=== PATIENT | female | born 1940 | race Caucasian/White ===

== ENCOUNTER 2016-10-27 10:01 | Inpatient (IN) | payer MEDICARE ==
[~2016-10-27] VITALS: Ht 162.6 cm; Wt 52.6 kg
[2016-10-27] MEDS ORDERED: NIFE20CA PO (10:32)
[2016-10-27] MEDS ORDERED: LISI10TA4 PO (10:32)
[2016-10-27] MEDS ORDERED: ASPI1TAB PO (10:32)
[2016-10-27] MEDS ORDERED: ZETI10TA30 PO (10:32)
[2016-10-27] MEDS ORDERED: PLAV1TAB2 PO (10:32)
[2016-10-27] MEDS ORDERED: OMEP40CA2 PO (10:32)
[2016-10-27] MEDS ORDERED: METO1TAB33 PO (10:32)
[2016-10-27] MEDS ORDERED: NITR4TASL SL (10:32)
[2016-10-27] MEDS ORDERED: SPIR1CAP INH (10:32)
[2016-10-27] MEDS ORDERED: CALCTAB28 PO (10:32)
[2016-10-27] MEDS ORDERED: XANA0.5T PO (10:32)
[2016-10-27] MEDS ORDERED: VICO5TAB16 PO (10:32)
[2016-10-27] MEDS ORDERED: BENT10CA PO (10:32)
[2016-10-27] MEDS ORDERED: FOLI800C PO (10:32)
[2016-10-27] MEDS ORDERED: MORPHINE 2 MG/ML 1ML SYRINGE As Ordered ONE (10:37)
[2016-10-27] MEDS ORDERED: ONDANSETRON 4MG/2ML VIAL (J2405) As Ordered ONE (10:37)
[2016-10-27] MEDS ORDERED: ONDANSETRON 4MG/2ML VIAL (J2405) IV ONE (10:45)
[2016-10-27] MEDS ORDERED: NS 500 ML IV ONE (10:45)
[2016-10-27] MEDS: MORPHINE 2 MG/ML 1ML SYRINGE IV PRN ×5 (10:46→16:15)
[2016-10-27 11:15] LABS: BASO % 0.3 % (0.0-1.0); EOS # 0.1 K/mm3 (0.0-0.50); EOS % 1.1 % (0.0-3.0); LARGE UNSTAINED CELL # 0.1 K/mm3 (0.0-0.4); LARGE UNSTAINED CELL % 1.2 % (0.0-4.0); LYMPH % 9.3 % (24.0-44.0); MEAN CORPUSCULAR HEMOGLOBIN 26.5 pg (27.0-33.0); MEAN CORPUSCULAR VOLUME 85.5 fl (80.0-96.0); MONO # 0.6 K/mm3 (0.0-0.8); NEUTROPHILS # 9.2 K/mm3 (1.8-7.7); NEUTROPHILS % 83.2 % (36.0-66.0); PLATELET COUNT, AUTOMATED 166 k/mm3 (150-450); RED CELL DISTRIBUTION WIDTH 16.9 % (11.5-14.5); WHITE BLOOD COUNT 11.1 K/mm3 (4.0-10.0)
[2016-10-27 11:35] LABS: ALBUMIN 2.7 GM/DL (3.2-5.2); ALKALINE PHOSPHATASE 88 U/L (45-117); ALT/SGPT 17 U/L (12-78); ANION GAP 11 MEQ/L (8-16); AST/SGOT 20 U/L (15-37); BILIRUBIN,DIRECT 0.2 MG/DL (0.0-0.2); BILIRUBIN,TOTAL 0.5 MG/DL (0.2-1.0); BLOOD UREA NITROGEN 18 MG/DL (7-18); CALCIUM LEVEL 7.7 MG/DL (8.8-10.2); CARBON DIOXIDE LEVEL 19 MEQ/L (21-32); CHLORIDE LEVEL 114 MEQ/L (98-107); CREATININE FOR GFR 1.12 MG/DL (0.55-1.02); FREE T4 1.35 NG/DL (0.76-1.46); GLOMERULAR FILTRATION RATE 50.5 (>39); GLUCOSE, FASTING 86 MG/DL (83-110); POTASSIUM SERUM 4.2 MEQ/L (3.5-5.1); SODIUM LEVEL 144 MEQ/L (136-145); TOTAL PROTEIN 5.4 GM/DL (6.4-8.2)
--- NOTE | 2016-10-27 11:46 | REP ---
PELVIS: AP view of the pelvis is performed. There is a fracture of the proximal left femur extending through the intertrochanteric region. There is minimal displacement of fracture fragments. No other fracture or dislocation is seen. Diffuse vascular calcifications are present. There is a right iliac stent noted. IMPRESSION: Comminuted fracture intertrochanteric region proximal left femur. Signed by Valdo Mccormick MD 10/27/2016 05:08 P
--- NOTE | 2016-10-27 11:48 | REP ---
LEFT HIP: Two views left hip performed. There is a comminuted fracture of the intertrochanteric region of the proximal left femur with mild distraction of fracture fragments. There are adjacent vascular calcifications in the soft tissues. IMPRESSION: Comminuted intertrochanteric fracture proximal left femur. Signed by Valdo Mccormick MD 10/27/2016 05:08 P
--- NOTE | 2016-10-27 11:49 | REP ---
CT Head without contrast HISTORY: Injury COMPARISON: None Areas of decreased attenuation are present in the right basal ganglia and left thalamus. These represent old lacunar infarctions. Areas of decreased attenuation are present in the periventricular white matter. This represents small-vessel ischemic disease. There is no intraparenchymal hemorrhage, acute infarct, mass or midline shift. The ventricular system and cortical sulci are dilated consistent with minimal volume loss. There is no extra cerebral collection. There is no fracture. The visualized sinuses are clear. IMPRESSION: 1. Old right basal ganglia and left thalamic lacunar infarctions. 2. Small vessel ischemic disease. 3. Minimal volume loss. Signed by Max Zaragoza MD 10/27/2016 11:41 A
--- NOTE | 2016-10-27 11:50 | REP ---
LEFT FEMUR: AP and lateral views of the left femur are performed. There is a comminuted fracture of the intertrochanteric region of the proximal left femur. The more distal femur is intact. Vascular calcifications are noted. IMPRESSION: Comminuted fracture intertrochanteric region proximal left femur. Signed by Valdo Mccormick MD 10/27/2016 05:08 P
--- NOTE | 2016-10-27 11:56 | REP ---
CHEST: AP view of the chest is performed. There are no prior studies for comparison. There appears to be bibasilar fibroatelectatic change without consolidating infiltrate. The heart is mildly enlarged. There is calcified tortuous aorta. There are multiple sternal wires and mediastinal clips present. IMPRESSION: Mild cardiomegaly. There appear to be mild bibasilar fibroatelectatic change without consolidating infiltrate. Signed by Valdo Mccormick MD 10/27/2016 05:09 P
[2016-10-27] MEDS ORDERED: NS 1,000 ML IV ONE (12:00)
[2016-10-27 12:05] LABS: ABG BASE EXCESS -6.1 (-2.0-2.0); ABG HCO3 17.4 MEQ/L (22.0-26.0); ABG PARTIAL PRESSURE CO2 28.8 mmHg (35.0-45.0); ABG PARTIAL PRESSURE O2 64.9 mmHg (75.0-100.0); ABG STANDARD HCO3 19.4 MEQ/L (22.0-26.0); ABG TOTAL CO2 18.2 MEQ/L (23.0-31.0); ABG pH (ARTERIAL) 7.398 UNITS (7.350-7.450)
[2016-10-27] MEDS ORDERED: VITA400C7 PO (13:35)
[2016-10-27] MEDS ORDERED: NORC1TAB4 PO (13:35)
[2016-10-27] MEDS ORDERED: NORCO, ANEXSIA 5/325MG TABLET (HYDROcodone/ACETAMINOPHEN) PO PRN (13:45)
[2016-10-27] MEDS ORDERED: BISACODYL 5 MG TAB PO PRN (13:45)
[2016-10-27 13:50] LABS: INR 1.26
[2016-10-27] MEDS ORDERED: ALPRAZolam 0.25 MG TAB PO PRN (14:00)
[2016-10-27] MEDS ORDERED: ALBUTEROL SULFATE 2.5 MG/0.5 ML INH NEB SOLN NEB PRN (14:00)
[2016-10-27] MEDS: ONDANSETRON 4MG/2ML VIAL (J2405) IV PRN (16:34)
[2016-10-27] MEDS: NORCO, ANEXSIA 5/325MG TABLET (HYDROcodone/ACETAMINOPHEN) PO PRN ×2 (16:35→21:14)
--- NOTE | 2016-10-27 19:56 | ECGEPIP ---
Stationary ECG Study [facility] - ED Test Date: 2016-10-27 Pat Name: MICHELLE HERNÁNDEZ Department: Room: - Gender: F Surgery Scheduling Coordinator: ethel : 1940 Requested By: Anupam Spence Order Number: [id number] Reading MD: Anupam Spence Measurements Intervals [place] Rate: 58 P: 87 TX: 147 QRS: 104 QRSD: 84 T: 45 QT: 444 QTc: 439 Interpretive Statements SINUS BRADYCARDIA MARKED RIGHT AXIS DEVIATION ST DEVIATION AND MODERATE T-WAVE ABNORMALITY, CONSIDER ANTEROLATERAL ISCHEMIA NO OLD ECG FOR COMPARISON CLINICALLY CORRELATE Electronically Signed On 10-27-2016 19:56:44 EDT by Anupam Spence
--- NOTE | 2016-10-27 20:38 | HPE ---
DATE OF ADMISSION: 10/27/2016 PRIMARY CARE PROVIDER: In [place], [place]. CHIEF COMPLAINT: Trip and fall with injury to left hip this morning at around 9 o'clock. PAST MEDICAL HISTORY: 1. Coronary artery disease with history of myocardial infarction (IN), status post coronary artery bypass graft (CABG) in 2014, status post cardiac stents also in 2014. 2. Aortic valve replacement with a bioprosthetic valve in 2014. 3. Peripheral vascular disease with femoral-femoral (fem-fem) bypass from right to left. 4. History of hypertension. 5. Chronic obstructive pulmonary disease (COPD). 6. History of cerebrovascular accident (CVA) 25 years ago without any residual paralysis. 7. Raynaud's phenomenon. 8. Anxiety. HISTORY OF PRESENT ILLNESS: This is a 76-year-old female who is from [place], [place] ([facility], who was up here in [facility] to celebrate her wedding anniversary. When she was going into her hotel room this morning at around 9 a.m., she tripped and fell on her left side and injured her left hip. She denied any loss of consciousness or any trauma to head. She was brought to the emergency room and found to have a left intertrochanteric fracture of the femur. Patient is being admitted to the hospitalist service for left hip fracture. Dr. Mcdowell's group will be assessing the patient for surgery. The patient denies any fever or chills. Denies any chest pain, chronic chest pain. The patient does have chronic shortness of breath because of COPD, but is able to climb one flight of stairs slowly. She can walk on flat ground; however, will have to take frequent little breaks for shortness of breath which she says is due to her bad COPD. She denies any history of congestive heart failure. Denies any symptoms of angina. Denies any nausea, vomiting, abdominal pain. Denies any diarrhea. Denies any cough or phlegm. PAST SURGICAL HISTORY: 1. CABG in 2014. 2. Aortic valve replacement in 2014. 3. Fem-fem bypass from right to left. 4. Hysterectomy and appendicectomy 25 years ago. 5. Cholecystectomy. 6. Ankle surgery and wrist surgery. HOME MEDICATIONS: - acetaminophen/hydrocodone 5/325 one tablet by mouth every six hours as needed for pain - alprazolam 0.25 mg by mouth twice a day as needed for anxiety - aspirin 81 mg daily - Plavix 75 mg daily - calcium/vitamin D one tablet by mouth daily - dicyclomine 10 mg by mouth as needed - Zetia 10 mg by mouth daily - folic acid 800 mcg by mouth daily - lisinopril 10 mg by mouth twice a day - metoprolol succinate 100 mg by mouth twice a day - nifedipine 20 mg by mouth daily - nitroglycerin 0.4 mg sublingual as needed for angina - omeprazole 40 mg by mouth daily - Spiriva one inhalation daily - vitamin E 400 units by mouth daily ALLERGIES: LATEX and PENICILLINS. SOCIAL HISTORY: The patient is an ex smoker, quit six years ago. Had smoked for 55 years more than a pack per day. Does not abuse alcohol or recreational drugs. FAMILY HISTORY: Nothing significant. REVIEW OF SYSTEMS: All 10-point review of systems are negative except those mentioned in history of present illness (HPI). PHYSICAL EXAMINATION: VITAL SIGNS: Temperature 96, pulse 65, respiratory rate 16, blood pressure 143/65, pulse oximetry 99% on room air. GENERAL: The patient awake, alert, oriented times three, lying down in bed in no acute distress. HEENT: Normocephalic, atraumatic. Moist mucous membranes. Anicteric eyes. CHEST: Clear to auscultation. Diminished breath sounds over all chest. CARDIOVASCULAR: S1, S2. Regular. No rub, murmur or gallop. ABDOMEN: Soft, nontender. Bowel sounds present. EXTREMITIES: No edema. LABORATORY DATA: WBC 11.1, hematocrit 12.7, platelets 166. Sodium 144, potassium 4.2, chloride 114, bicarbonate 19, BUN 18, creatinine 1.12, glucose 86, calcium 7.7. Liver function tests are normal. Albumin 2.7. Blood gas: PH 7.39, pCO2 28, pO2 64. IMAGING: CT head: Old right basal ganglia and left thalamic lacunar infarcts. Small vessel ischemic disease. Minimal volume loss. Chest x-ray shows mild cardiomegaly and bibasilar fibro-atelectatic changes. X-ray of femur shows comminuted fracture of the intertrochanteric region in the proximal left femur. EKG shows sinus bradycardia. ASSESSMENT AND PLAN: This is a 76-year-old female who was admitted for a left hip fracture. PLAN: 1. For left hip fracture, the patient will consult orthopedics. Pain control with acetaminophen/hydrocodone and morphine as required. Bed rest. Patient being on Plavix will need at least 72 hours before she can be cleared for surgery. 2. Surgical clearance: The patient at this point cannot be cleared for surgery as the patient is on Plavix and patient has a high cardiac risk. The patient has a stent in place but it is more than one year, so Plavix will be put on hold. She is also a patient with high cardiac risk for the proposed procedure because of her history of myocardial infarction in the past, cerebrovascular accident (CVA) in the past, hypertension. Her exercise tolerance in less than 4 mets. We will also get echocardiography. In view of COPD, the patient may also have underlying pulmonary hypertension which will increase the cardiac risk. 3. Chronic obstructive pulmonary disease. Will continue with Spiriva, albuterol and ipratropium nebulizer as needed, and will also give incentive spirometry. 4. Coronary artery disease with history of CABG and stent. Will continue with beta krunal, statin. Will hold Plavix. At this point, we will continue with aspirin if it is okay with the surgeon. 5. Peripheral vascular disease with history of fem-fem bypass. Stable at this point. 6. Hypertension. Will continue with metoprolol, lisinopril, nifedipine. 7. Raynaud's phenomenon. Will continue with nifedipine. 8. Deep venous thrombosis (DVT) prophylaxis. We will order Lovenox. 9. Gastrointestinal (GI) prophylaxis. We will continue with home medications. 10. Anxiety. We will continue with alprazolam as needed. MTDD
[2016-10-27] MEDS: LISINOPRIL 10 MG TAB PO SCH (21:13)
[2016-10-27] MEDS: SENOKOT S TAB PO SCH (21:13)
[2016-10-27] MEDS: METOPROLOL SUCC (TopROL XL) 100MG *XL* TAB PO SCH (21:14)
[2016-10-27 22:00] VITALS: BP 139/79
[2016-10-28] MEDS: NORCO, ANEXSIA 5/325MG TABLET (HYDROcodone/ACETAMINOPHEN) PO PRN ×4 (01:24→22:36)
[2016-10-28 06:00] VITALS: BP 117/63
[2016-10-28 06:35] LABS: BASO % 0.4 % (0.0-1.0); EOS # 0.2 K/mm3 (0.0-0.50); EOS % 2.3 % (0.0-3.0); LARGE UNSTAINED CELL # 0.1 K/mm3 (0.0-0.4); LARGE UNSTAINED CELL % 0.9 % (0.0-4.0); LYMPH # 1.4 K/mm3 (1.5-4.5); LYMPH % 12.3 % (24.0-44.0); MEAN CORPUSCULAR HEMOGLOBIN 26.3 pg (27.0-33.0); MEAN CORPUSCULAR HGB CONC 30.6 g/dl (32.0-36.5); MEAN CORPUSCULAR VOLUME 85.9 fl (80.0-96.0); MONO # 0.7 K/mm3 (0.0-0.8); MONO % 6.2 % (0.0-5.0); NEUTROPHILS # 8.4 K/mm3 (1.8-7.7); NEUTROPHILS % 77.9 % (36.0-66.0); PLATELET COUNT, AUTOMATED 130 k/mm3 (150-450); RED CELL DISTRIBUTION WIDTH 17.2 % (11.5-14.5); WHITE BLOOD COUNT 10.7 K/mm3 (4.0-10.0)
[2016-10-28 07:04] LABS: CALCIUM LEVEL 8.5 MG/DL (8.8-10.2); CREATININE FOR GFR 1.62 MG/DL (0.55-1.02); POTASSIUM SERUM 4.8 MEQ/L (3.5-5.1)
[2016-10-28] MEDS ORDERED: CLINDAMYCIN 600 MG in APPROPRIATE DILUENT 1 EA IV SCH (08:00)
[2016-10-28] MEDS ORDERED: CLINDAMYCIN 600 MG in APPROPRIATE DILUENT 1 EA IV ONE (08:00)
[2016-10-28] MEDS ORDERED: NIFEdipine 10 MG CAP PO SCH (09:00)
[2016-10-28] MEDS: SENOKOT S TAB PO SCH ×2 (09:00→21:32)
[2016-10-28] MEDS ORDERED: TIOTROPIUM INHALER/CAPSULE (SPIRIVA) INH SCH (09:00)
[2016-10-28] MEDS ORDERED: ENOXAPARIN 30 MG/0.3 ML SYR (J1650) SC SCH (09:00)
--- NOTE | 2016-10-28 09:03 | CR ---
DATE OF CONSULTATION: 10/27/2016 REASON FOR CONSULTATION: Left intertrochanteric hip fracture. HISTORY OF PRESENT ILLNESS: This is a 76-year-old female visiting from [place], [place] with her , who slipped and fell at the hotel near [place] and presented to the emergency room and found to have a displaced intertrochanteric fracture of the left hip. No other apparent injury. No loss of consciousness. Only complains of isolated soreness in her left hip area. She presents to the emergency room and evaluated by the emergency room staff. I was called to see her for this specific injury and she is being admitted by the hospitalist service because she has significant medical comorbidities, most relevant is significant peripheral vascular disease. She is status post bilateral carotid endarterectomies and bilateral femoral bypass grafting and coronary artery disease, status post coronary artery bypass graft (CABG) times three, status post aortic valve replacement. She has asthma. Her past medical history otherwise is significant for high blood pressure. PAST SURGICAL HISTORY: As stated above, but includes aortic valve replacement, coronary artery bypass grafting, bilateral carotid endarterectomies, bilateral femoral bypass surgeries, cardiac stent placement, cholecystectomy. She gets her care down in [place] at the [facility]. ALLERGIES: Allergies to medications are remote. PENICILLIN allergy. SOCIAL HISTORY: She quit smoking many years ago. Does not drink alcohol excessively. 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 She is here with her . She has multiple children, grandchildren, and great grandchildren. REVIEW OF SYSTEMS/HEALTH SURVEY: Amended to the chart. Please see the note from Dr. Cervantes and the emergency room intake sheet. MEDICATIONS: Include: - Lisinopril - Plavix - omeprazole - Spiriva - Bentyl PHYSICAL EXAMINATION: She is a very pleasant, slender female lying in the hospital bed up on [address]. Her left leg was clearly shortened and externally rotated for comfort. VITAL SIGNS: Stable. Temperature 96.2, blood pressure was 168/79, pulse 71, respirations 14, oxygen saturation 93% on 2 liters nasal cannula. HEENT: Examination is otherwise benign. Normocephalic, atraumatic. Extraocular muscles grossly normal. She wears glasses. EXTREMITIES: She could elevated both arms up over her head without obvious pain, deformity or crepitance of the shoulders, clavicles, elbows, wrists, forearms. Her lower extremities, left lower leg is shortened and externally rotated. She had good motor strength with ankle dorsiflexion, plantar flexion, and EHL, FHL. Normal sensation to light touch dorsally and plantarly, but only dopplerable pulses in both feet, posterior tibialis and dorsalis pedis. I could not palpate the pulses. There is no pitting edema. Her feet are relatively cool but good capillary refill. ABDOMEN: Nontender. IMAGING STUDIES: CT of the head did not show any acute injury. Chest x-ray showed some mild cardiomegaly. No acute disease. Left hip, femur, and pelvis x-ray showed an intertrochanteric fracture with lesser trochanteric involvement. IMPRESSION AND PLAN: 1. Intertrochanteric fracture of the left hip. I would recommend stabilization surgically for this fracture, but unfortunately she is on Plavix and has multiple medical comorbidities that need to be stabilized before proceeding surgically and she understands this. Unfortunately, she is from out of town as well, but I talked to Dr. Cervantes, her medical provider, and they are going to keep her comfortable for the next few days until the Plavix effect will wear off and proceed to surgical fixation when she is felt to be stable medically.
--- NOTE | 2016-10-28 09:26 | IPNPDOC ---
Date Seen The patient was seen on 10/28/16. Progress Note DATE OF CONSULTATION: 10/27/2016 REASON FOR CONSULTATION: Left intertrochanteric hip fracture. HISTORY OF PRESENT ILLNESS: This is a 76-year-old female visiting from [place], [place] with her , who slipped and fell at the hotel near [place] and presented to the emergency room and found to have a displaced intertrochanteric fracture of the left hip. She was admitted to the hospitalist service yesterday. Patient is on plavix and has multiple medical comorbidities to include PVD, and CAD s/p stenting. Today she localizes pain to the left hip but has no other complaints. Denies chest pain, shortness of breath , or palpitations at this time. Upon discussion with the patient, she was scheduled for an outpatient stress echocardiogram with her ammonium nitrate crystallizer next week. PAST SURGICAL HISTORY: As stated above, but includes aortic valve replacement, coronary artery bypass grafting, bilateral carotid endarterectomies, bilateral femoral bypass surgeries, cardiac stent placement, cholecystectomy. She gets her care down in [place] at the [facility]. ALLERGIES: Allergies to medications are remote. PENICILLIN allergy. SOCIAL HISTORY: She quit smoking many years ago. Does not drink alcohol excessively. 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 She is here with her . She has multiple children, grandchildren, and great grandchildren. REVIEW OF SYSTEMS: Positive for occasional dyspnea on exertion, otherwise per HPI MEDICATIONS: Include: - Lisinopril - Plavix - omeprazole - Spiriva - Bentyl PHYSICAL EXAMINATION: General: well nourished female in no acute distress VITAL SIGNS: Stable. Temperature 96.2, blood pressure was 168/79, pulse 71, respirations 14, oxygen saturation 93% on 2 liters nasal cannula. HEENT: Normocephalic, atraumatic. Skin: no open wounds or abrasions LLE CV: weakly palpable DP and PT pulses LLE. 2-3 second capillary refill EXTREMITIES: She could elevated both arms up over her head without obvious pain , deformity or crepitance of the shoulders, clavicles, elbows, wrists, forearms. Her lower extremities, left lower leg is shortened and externally rotated. She had good motor strength with ankle dorsiflexion, plantar flexion, and EHL, FHL. Normal sensation to light touch dorsally and plantarly, but only dopplerable pulses in both feet, posterior tibialis and dorsalis pedis. I could not palpate the pulses. There is no pitting edema. Her feet are relatively cool but good capillary refill. IMAGING STUDIES: CT of the head did not show any acute injury. Chest x-ray showed some mild cardiomegaly. No acute disease. Left hip, femur, and pelvis x-ray showed an intertrochanteric fracture with lesser trochanteric involvement. Assessment: 76 y/o female with significant cardiac risk factors with a L intertrochanteric femur fracture Plan: I had a long discussion with the patient and her regarding the risks, benefits, indications, and alternatives of operative treatment of her proximal femur fracture. I also discussed her case with the hospitalist and anesthesia services. Given her significant comorbidities, patient requires evaluation by cardiology for appropriate risk stratification. I discussed with the patient and medical team that if she is optimized and cleared for surgery, there does not need to be a delay from an orthopedic standpoint based on the fact that she is on plavix. However, given her comorbidities she may need spinal anesthesia, which will require a 3-7 day washout period. She also may require inpatient stress echocardiography pending the cardiologists evaluation, which may not be able to be done here in a timely fashion and require transfer to [facility]. Patient was counseled that she is likely moderate to high risk for perioperative major complication, to include , however the benefits of rigid fixation of her hip still outweigh the risks of non operative treatment. However, she requires optimization and thorough risk stratification prior to surgery. Patient and expressed understanding. Surgical management pending further evaluation. Taran Villalobos MD Orthopedic surgeon VS, I&O, 24H, [facility] Vital Signs/I&O Vital Signs Date Time Temp Pulse Resp B/P (MAP) Pulse Ox O2 Delivery O2 Flow Rate FiO2 10/28/16 06:47 17 10/28/16 06:00 99.4 59 117/63 (81) 95 Nasal Cannula 2.0 I&O- Last 24 Hours up to 6 AM 10/28/16 06:00 Intake Total 400 ml Balance 400 ml Laboratory Data 24H LABS Laboratory Tests 2 10/27/16 10:52: White Blood Count 11.1H, Red Blood Count 4.80, Hemoglobin 12.7, Hematocrit 41.0 , Mean Corpuscular Volume 85.5, Mean Corpuscular Hemoglobin 26.5L, Mean Corpuscular Hemoglobin Concent 31.0L, Red Cell Distribution Width 16.9H, Platelet Count 166, Neutrophils (%) (Auto) 83.2H, Lymphocytes (%) (Auto) 9.3L, Monocytes (%) (Auto) 5.0, Eosinophils (%) (Auto) 1.1, Basophils (%) (Auto) 0.3, Neutrophils # (Auto) 9.2H, Lymphocytes # (Auto) 1.0L, Monocytes # (Auto) 0.6, Eosinophils # (Auto) 0.1, Basophils # (Auto) 0.0, Large Unclassified Cells % 1.2 , Large Unclassified Cells # 0.1, Anion Gap 11, Glomerular Filtration Rate 50.5 , Calcium Level 7.7L, Aspartate Amino Transf (AST/SGOT) 20, Alanine Aminotransferase (ALT/SGPT) 17, Alkaline Phosphatase 88, Total Bilirubin 0.5, Direct Bilirubin 0.2, Total Creatine Kinase 51, Creatine Kinase MB 1.7, Creatine Kinase MB Relative Index 3.33, Troponin I < 0.02, Total Protein 5.4L, Albumin 2.7L, Albumin/Globulin Ratio 1.00, Lipase 103, Thyroid Stimulating Hormone (TSH) 1.970, Free Thyroxine 1.35 10/27/16 11:59: Blood Gas Bicarbonate Standard 19.4L, Arterial Blood pH 7.398, Arterial Blood Partial Pressure CO2 28.8L, Arterial Blood Partial Pressure O2 64.9L, Arterial Blood Total CO2 18.2L, Arterial Blood HCO3 17.4L, Arterial Blood Base Excess - 6.1L, Arterial Blood Oxygen Saturation 91.8L 10/27/16 13:31: Prothrombin Time 16.0H, Prothromb Time International Ratio 1.26, Activated Partial Thromboplast Time 37.8 10/28/16 06:15: White Blood Count 10.7H, Red Blood Count 4.59, Hemoglobin 12.1, Hematocrit 39.4 , Mean Corpuscular Volume 85.9, Mean Corpuscular Hemoglobin 26.3L, Mean Corpuscular Hemoglobin Concent 30.6L, Red Cell Distribution Width 17.2H, Platelet Count 130L, Neutrophils (%) (Auto) 77.9H, Lymphocytes (%) (Auto) 12.3L , Monocytes (%) (Auto) 6.2H, Eosinophils (%) (Auto) 2.3, Basophils (%) (Auto) 0.4, Neutrophils # (Auto) 8.4H, Lymphocytes # (Auto) 1.4L, Monocytes # (Auto) 0.7, Eosinophils # (Auto) 0.2, Basophils # (Auto) 0.0, Large Unclassified Cells % 0.9, Large Unclassified Cells # 0.1, Anion Gap 8, Glomerular Filtration Rate 33.0L, Calcium Level 8.5L, Blood Urea Nitrogen 22H, Creatinine 1.62H, Sodium Level 139, Potassium Level 4.8, Chloride Level 107, Carbon Dioxide Level 24 CBC/BMP Laboratory Tests 10/27/16 10:52 Red Blood Count 4.80, Mean Corpuscular Volume 85.5, Mean Corpuscular Hemoglobin 26.5 L, Mean Corpuscular Hemoglobin Concent 31.0 L, Red Cell Distribution Width 16.9 H, Neutrophils (%) (Auto) 83.2 H, Lymphocytes (%) (Auto) 9.3 L, Monocytes ( %) (Auto) 5.0, Eosinophils (%) (Auto) 1.1, Basophils (%) (Auto) 0.3, Neutrophils # (Auto) 9.2 H, Lymphocytes # (Auto) 1.0 L, Monocytes # (Auto) 0.6, Eosinophils # (Auto) 0.1, Basophils # (Auto) 0.0 10/28/16 06:15 Red Blood Count 4.59, Mean Corpuscular Volume 85.9, Mean Corpuscular Hemoglobin 26.3 L, Mean Corpuscular Hemoglobin Concent 30.6 L, Red Cell Distribution Width 17.2 H, Neutrophils (%) (Auto) 77.9 H, Lymphocytes (%) (Auto) 12.3 L, Monocytes (%) (Auto) 6.2 H, Eosinophils (%) (Auto) 2.3, Basophils (%) (Auto) 0.4, Neutrophils # (Auto) 8.4 H, Lymphocytes # (Auto) 1.4 L, Monocytes # (Auto) 0.7, Eosinophils # (Auto) 0.2, Basophils # (Auto) 0.0, Calcium Level 8.5 L ALFREDO VILLALOBOS MD Oct 28, 2016 09:26
[2016-10-28] MEDS: EZETIMIBE 10 MG TAB (ZETIA) PO SCH (10:01)
[2016-10-28] MEDS: METOPROLOL SUCC (TopROL XL) 100MG *XL* TAB PO SCH ×2 (10:01→21:33)
[2016-10-28] MEDS: OMEPRAZOLE 20 MG CAP PO SCH (10:02)
[2016-10-28] MEDS: LISINOPRIL 10 MG TAB PO SCH (10:02)
[2016-10-28] MEDS: TIOTROPIUM INHALER/CAPSULE (SPIRIVA) INH SCH (11:08)
--- NOTE | 2016-10-28 12:01 | IPNPDOC ---
Text Note Date of Service The patient was seen on 10/28/16. NOTE Subjective: Patient seen and examined at bedside. Denies fevers, chills, dizziness, headache , chest pain, shortness of breath at rest, nausea, vomiting, abdominal pain, diarrhea, constipation, weakness. Admits to left-sided hip pain which is controlled with pain medications. States that she would like to attend a wedding in January and is anxious about having her hip repair procedure. Objective: Please see vital signs and physical examination below. Laboratory data: Labs were significant for white blood cell count 10.7 from 11.7 yesterday, platelets are 130 from 166 yesterday, BUN of 22 from 18 yesterday, creatinine of 1.62 from 1.12 yesterday, albumin of 2.7 yesterday, total protein 5.4 yesterday, PT of 16 yesterday, INR 1.26 yesterday, and a PTT of 37.8 yesterday. ABG from yesterday showed pH 7.398/PCO2 of 28.8/02/64.9. Serum bicarbonate was 19 yesterday. Please see below for full labs. Imaging: No new imaging today. Assessment/Plan: 76 yo female with a PMH significant for coronary artery disease and history of VT status post CABG and stents in 2015, bioprosthetic aortic valve replacement in 2015, peripheral vascular disease with femoral-femoral w bypass from right to left, hypertension, COPD, CVA, anxiety, is presenting for an intertrochanteric comminuted fracture of the proximal L femur. Comminuted Intertrochanteric Fracture of the L Hip/Femur: Dr. Mcdowell of Orthopedic Surgery has been consulted for hip repair surgery. However, patient has not yet been medically cleared for surgery. She is a high cardiac risk candidate due to her previous medical hx: VT, CABG, PVD, HTN, COPD, CVA. May have underlying pulmonary HTN. Plavix has been held and needs to be held a total of 5-7 days ideally or at least 72 hours before surgery. In ddition, we have consulted Dr. Hammond for cardiac clearance. Patient will undergo echocardiogram today and possible stress test in the future. May have to be transferred to [place] if cardiac catheterization is determined to be necessary. Pain control with norco and morphine PRN as well as senokot S and bisacodyl for bowel regimen to prevent opioid-induced constipation. In addition , Dr. Vergara of Orthopedic Surgery spoke with patient and as patient will likely not undergo any surgery today until she is cleared by cardiology and fully medically optimized for high risk surgery. Acute Kidney Injury: BUN & Cr bumped up from yesterday. BUN 22 from 18 yesterday and Cr was 1.62 from 1.12 yesterday. Will do investigation of etiology with urine electrolytes: Ur Na, Ur Cr, serum Na, serum Cr, and calculate FeNa score. Continue to monitor BMPs. Discontinue lisinopril for now. In addition, have ordered myoglobin labs to rule out crush injury from patient' s fall that could cause KARLOS as well. COPD: continue spiriva daily, proventil nebulizer tx q2H PRN SOB/wheezing, incentive spirometry for lung expansion and to prevent pneumonia. CAD s/p CABG and stent: continue metoprolol, zetia. Will ask if aspirin is okay with orthopedic surgery. Not on statin and will inquire about this. PVD with hx of Femoral-Femoral Bypass: Monitor clinically. Patient has no lower extremity complaints at this time aside from L hip fracture. Stable for now. HTN: continue metoprolol, nifedipine. Discontinue lisinopril due to KARLOS. Raynaud's phenomenon: continue nifedipine. Anxiety: continue xanax. DVT ppx: lovenox GI ppx: prilosec CODE STATUS: to be determined Immunizations as per protocol My preceptor for this patient encounter was Dr. Jhoan Mckeon, and was physically present in the building during the encounter and was fully available. As needed, all aspects of the patient interview, examination, medical decision making process, and medical care plan development were reviewed and approved by the preceptor. Preceptor is aware and concurs with the plan as stated in the body of this note and will attest to such by his/her cosignature. I did receive a phone call from Dr. Vergara this morning informing the me that he and anesthesiology less concerned with Plavix. Dr. Cervantes had previously not risk stratify the patient suggesting the patient should have a Plavix washout. 5 -[address] Fransico Cisneros will do not think the patient to surgery until medically cleared. Given that the surgeon and anesthesiologist were not concerned with the patient's use of Plavix and asked me to manager risk management from a cardiac perspective. The patient informed me that she does have dyspnea on exertion and has difficulty climbing a single flight of stairs she tells me that her primary pneumatic tube fitter is aware of this and had arranged for her to have a stress test to be completed this week. Based on this new information I informed Dr. Vergara that the patient should not have surgery today I did discuss with the patient that she was quite high risk her was present for this conversation all questions were answered to satisfaction. I suggested potential transfer to this facility in [place] where stress testing to be completed in any interventional measures taken prior to surgery the patient and her declined offers for this. I did inform him that I will have her seen by our pneumatic tube fitter Dr. dexter later today and echocardiogram is been ordered by Dr. Cullen fox at this time. Dr. dexter's deformity with the echo himself and to see and evaluate the patient and perform his own assessment about her risk assessment his help is greatly appreciated VS,Ketan, I+O VS, Ketan, I+O Laboratory Tests 10/28/16 06:15 Red Blood Count 4.59, Mean Corpuscular Volume 85.9, Mean Corpuscular Hemoglobin 26.3 L, Mean Corpuscular Hemoglobin Concent 30.6 L, Red Cell Distribution Width 17.2 H, Neutrophils (%) (Auto) 77.9 H, Lymphocytes (%) (Auto) 12.3 L, Monocytes (%) (Auto) 6.2 H, Eosinophils (%) (Auto) 2.3, Basophils (%) (Auto) 0.4, Neutrophils # (Auto) 8.4 H, Lymphocytes # (Auto) 1.4 L, Monocytes # (Auto) 0.7, Eosinophils # (Auto) 0.2, Basophils # (Auto) 0.0, Calcium Level 8.5 L Vital Signs Date Time Temp Pulse Resp B/P (MAP) Pulse Ox O2 Delivery O2 Flow Rate FiO2 10/28/16 11:15 18 10/28/16 10:02 117/63 10/28/16 10:01 59 10/28/16 06:00 99.4 95 Nasal Cannula 2.0 I&O- Last 24 Hours up to 6 AM 10/28/16 06:00 Intake Total 400 ml Balance 400 ml Physical Examination Physical Examination Vital Signs/I&O Vital Signs Date Time Temp Pulse Resp B/P (MAP) Pulse Ox O2 Delivery O2 Flow Rate FiO2 10/28/16 11:15 18 10/28/16 10:02 117/63 10/28/16 10:01 59 10/28/16 06:00 99.4 95 Nasal Cannula 2.0 I&O- Last 24 Hours up to 6 AM 10/28/16 05:59 Intake Total 400 ml Balance 400 ml General Exam: Positive: alert, attentive, talkative, cooperative, no acute distress, oriented times three ENT EXAM: Positive: normocephalic, atraumatic Neck Exam: Positive: Supple, Negative: Lymphadenopathy, Thyromegaly Chest Exam: Positive: Wheezing (+scattered end expiratory wheezing in lung prado bilaterally), Negative: Rales, Rhonchi Heart Exam: Positive: Regular rate and rhythm, Negative: Murmurs Abdominal Exam: Positive: Normal bowel sounds, Soft, Negative: Nondistended, Nontender, Hepatospenomegaly Extremity Exam: Positive: Other (dorsalis pedis pulses minimally palpable. Patient unwilling to allow me to examine L hip as she is afraid of pain.), Negative: Clubbing, Cyanosis, Edema Skin Exam: Positive: Other (lower extremities and feet cool to touch bilterally ) Neuro Exam: Positive: Normal Speech, Other (No focal neurologic deficits appreciated bilaterally.) Psych Exam: Positive: Mental status NL, Anxiety (Patient keeps stating she would like to attend her family member's wedding and is expressing worried mood. ), Memory Intact, Alert and oriented x 3 Laboratory Data Labs 24H Laboratory Tests 2 10/27/16 13:31: Prothrombin Time 16.0H, Prothromb Time International Ratio 1.26, Activated Partial Thromboplast Time 37.8 10/28/16 06:15: White Blood Count 10.7H, Red Blood Count 4.59, Hemoglobin 12.1, Hematocrit 39.4 , Mean Corpuscular Volume 85.9, Mean Corpuscular Hemoglobin 26.3L, Mean Corpuscular Hemoglobin Concent 30.6L, Red Cell Distribution Width 17.2H, Platelet Count 130L, Neutrophils (%) (Auto) 77.9H, Lymphocytes (%) (Auto) 12.3L , Monocytes (%) (Auto) 6.2H, Eosinophils (%) (Auto) 2.3, Basophils (%) (Auto) 0.4, Neutrophils # (Auto) 8.4H, Lymphocytes # (Auto) 1.4L, Monocytes # (Auto) 0.7, Eosinophils # (Auto) 0.2, Basophils # (Auto) 0.0, Large Unclassified Cells % 0.9, Large Unclassified Cells # 0.1, Anion Gap 8, Glomerular Filtration Rate 33.0L, Blood Urea Nitrogen 22H, Creatinine 1.62H, Sodium Level 139, Potassium Level 4.8, Chloride Level 107, Carbon Dioxide Level 24, Calcium Level 8.5L CBC/BMP Laboratory Tests 10/28/16 06:15 Red Blood Count 4.59, Mean Corpuscular Volume 85.9, Mean Corpuscular Hemoglobin 26.3 L, Mean Corpuscular Hemoglobin Concent 30.6 L, Red Cell Distribution Width 17.2 H, Neutrophils (%) (Auto) 77.9 H, Lymphocytes (%) (Auto) 12.3 L, Monocytes (%) (Auto) 6.2 H, Eosinophils (%) (Auto) 2.3, Basophils (%) (Auto) 0.4, Neutrophils # (Auto) 8.4 H, Lymphocytes # (Auto) 1.4 L, Monocytes # (Auto) 0.7, Eosinophils # (Auto) 0.2, Basophils # (Auto) 0.0, Calcium Level 8.5 L ANGIE HERMAN OGME-1 Oct 28, 2016 11:50 JHOAN MCKEON MD Nov 13, 2016 06:19
--- NOTE | 2016-10-28 13:35 | ECHO ---
DATE OF PROCEDURE: 10/28/2016 DATE OF : 1940 AGE: 74 REFERRING PROVIDER: Dr. Rhianna Cervantes PATIENT LOCATION: Room 5147 REASON FOR THE ECHOCARDIOGRAM: Coronary artery disease, preoperative evaluation. 2D MEASUREMENTS: IVS: 1.4 cm LV: 2.1 cm LVPW: 1.9 cm LA: 3.3 cm IVC: 2.1 cm DOPPLER MEASUREMENTS: Peak velocity across the aortic valve: 1.8 m/s Peak velocity across the LVOT: 1.2 m/s Mitral E: 1.1, Mitral A: 1.1 with a ratio of 1.0 Tricuspid valve velocity: 3.3 m/s 2D COMMENTS: 1. Probably moderately increased left ventricular wall thickness with a small left ventricle size. Left ventricular systolic function is normal, hyperdynamic and estimated at 65 to 70%. 2. Subjectively, the left atrium appeared to be mildly enlarged, as well as the right atrium. The right ventricle also appeared to be mildly in limited views. The free wall of the right ventricle was not well visualized. 3. The atrial septum appeared to be normal without evidence of defect or shunt. 4. Normal aortic root. 5. No pericardial effusion seen. 6. Bioprosthetic valve noted in the aortic valve position. Leaflet excursion appeared to be normal. Mitral annulus calcification and the anterior mitral valve leaflet may be moving well. Normal tricuspid valve and pulmonic valve. The proximal pulmonary artery branches were not well visualized. DOPPLER: It detects trace aortic regurgitation, moderate tricuspid regurgitation and pulmonic regurgitation. No mitral regurgitation detected. The calculated pulmonary artery systolic pressure varies between 50 and 60 mmHg. Abnormal relaxation pattern was noted across the mitral valve annulus, consistent with grade 2 left ventricular diastolic dysfunction. Left ventricular end-diastolic pressure might be elevated. IMPRESSION: 1. Normal global left ventricular systolic function with probably moderate concentric left ventricular hypertrophy and a hyperdynamic left ventricle. 2. Bioprosthetic aortic valve with trace aortic regurgitation. No significant stenosis. 3. Mildly dilated left atrium, could not rule out mild mitral stenosis, no significant mitral regurgitation detected. 4. Moderate tricuspid regurgitation with moderate to severe pulmonary hypertension and dilated right atrium. 5. The inferior vena cava was mildly enlarged. Central venous pressure was might be elevated. MTDD
[2016-10-28] MEDS: D5W/0.9% SODIUM CHLORIDE 1,000 ML IV SCH (15:21)
--- NOTE | 2016-10-28 17:26 | ECGEPIP ---
Stationary ECG Study [facility] Test Date: 2016-10-28 Pat Name: MICHELLE HERNÁNDEZ Department: Room: [place] [address] Gender: F [employer]: [employer]MANI : 1940 Requested By: Drew Kinsey Order Number: [id number] Reading MD: Joseph Hammond Measurements Intervals Fletcher Rate: 60 P: 82 NJ: 145 QRS: 126 QRSD: 90 T: 37 QT: 420 QTc: 423 Interpretive Statements SINUS RHYTHM POSSIBLE RIGHT VENTRICULAR HYPERTROPHY. RIGHT AXIS DEVIATION MODERATE T-WAVE ABNORMALITY, CONSIDER ISCHEMIA LAST TRACING ON 10/27/2016 AT 11:53:14, THERE IS NOW LESS ST/T ABNORMALITY Electronically Signed On 10-28-2016 17:25:38 EDT by Joseph Hammond
[2016-10-28] MEDS: MORPHINE 2 MG/ML 1ML SYRINGE IV PRN ×2 (18:13→21:31)
--- NOTE | 2016-10-28 21:39 | CR ---
DATE OF CONSULTATION: 10/28/2016 AGE: 76 REFERRING PROVIDER: Dr. Decker REASON FOR CONSULTATION: Preoperative cardiac evaluation, history of coronary artery disease. PRIMARY CARE PROVIDER: In [place]. HISTORY OF PRESENT ILLNESS: 76-year-old woman visiting the area from [place]. She was celebrating her wedding anniversary. She was getting into the hotel and suddenly she lost her balance because the door was closing up on her and she tripped and fell on the floor on her left side and injured her left hip. She was brought to the emergency room for further evaluation. She was found to have a left intertrochanteric fracture of the femur. She was seen by orthopedist and surgery is being contemplated. Cardiology consultation was called in view of her history. When I saw Mrs. Julee Hoyos, she was lying supine in bed in no acute distress at rest and her was at bedside. There was no loss of consciousness or associated chest pain, shortness of breath, or diaphoresis at that time. She denies any cough, hemoptysis or fever. She has no nausea, vomiting, diarrhea, melena or hematemesis. She has no focal manifestation. She denies any chest pain or palpitations. She does have a history of coronary artery disease and peripheral artery disease, as well as valvular heart disease and she sees a quality assurance assistant in [place]. Her most recent visit was earlier this month and they were planning to proceed with a pharmacological nuclear stress test in view of her history. The patient does not think that her symptoms are worse than usual. She denies any chest pain, but she did have some shortness of breath for a few days and she stated that she was told in the past that she has chronic obstructive pulmonary disease (COPD). She has a past medical history positive for coronary artery disease diagnosed in 2014. At that time, she had coronary artery bypass graft (CABG), as well as aortic valve replacement with a bioprosthetic aortic valve. Later in the same year, she was diagnosed with acute coronary syndrome and had percutaneous transluminal coronary angioplasty/stent, but she could not remember which arteries, and she has been on Plavix and aspirin. Last year, she had an echocardiogram, as well as a nuclear stress test and there was no ischemia or infarction. Left ventricular ejection fraction was normal. She also has a history of peripheral artery disease with bilateral carotid endarterectomy, femoral-femoral bypass from the right to the left for intermittent claudication, right renal artery stent, hypertension, hyperlipidemia, and intolerance to statins due to muscle pain, chronic obstructive pulmonary disease (COPD), chronic kidney disease, Raynaud's phenomenon, anxiety. When she was in her early 50s, she was diagnosed with CVA with right sided weakness and she stated that she has completely recovered. There is no history of diabetes mellitus, thyroid disorder. PAST SURGICAL HISTORY: Positive as mentioned above for coronary artery bypass graft (CABG) and aortic valve replacement with a bioprosthetic aortic valve in 2015, bilateral carotid endarterectomy, femoral-femoral bypass for intermittent claudication, appendectomy and hysterectomy about 25 years ago, cholecystectomy, minor orthopedic surgery done on her ankles and wrists. FAMILY HISTORY: Positive for heart disease/coronary artery disease in both her father and her mother. SOCIAL HISTORY: The patient lives with her and she is a former smoker. She denies EtOH abuse. She is very active. ALLERGIES: LATEX and PENICILLIN. ADVANCED DIRECTIVES: The patient is a FULL CODE. PHYSICAL EXAMINATION: The patient is alert and oriented, in no acute distress at rest. Her last vital signs today revealed a blood pressure of 117/63 with a pulse of 59, respirations 18, her maximum temperature is 99.4 degrees Fahrenheit with an oxygen saturation of 95% on 2 liters nasal cannula. HEAD: Normocephalic, atraumatic. NECK: Supple with bilateral carotid bruits. LUNGS: Clear bilaterally on auscultation without any wheezing or crackles. HEART: Revealed normal S1, S2 without gallops. The PMI is not displaced. There is no rub. There is a systolic murmur, grade 1 to 2 over 6 at the base of the aorta/aortic valve area. ABDOMEN: Soft and nontender. EXTREMITIES: Reveal trace ankle edema. NEUROLOGIC: Examination was negative for focal deficit. Peripheral pulses/radial pulses were palpated. Dorsalis pedis was decreased bilaterally. HOME MEDICATIONS: - aspirin 81 mg by mouth daily - Plavix 75 mg by mouth daily - alprazolam 0.25 mg twice a day as needed for anxiety - acetaminophen/hydrocodone 5/325 one tablet every 6 hours as needed for pain - calcium with vitamin D one tablet by mouth daily - Zetia 10 mg by mouth daily - folic acid - Lisinopril 10 mg by mouth twice a day - metoprolol succinate 100 mg by mouth twice a day - nifedipine 10 mg by mouth daily - nitroglycerin sublingual 0.4 mg as needed for chest pain - omeprazole 40 mg by mouth daily - Spiriva Handi-Haler one inhalation daily - vitamin E 400 units by mouth daily CURRENT MEDICATIONS: - Lovenox 30 mg subcutaneously daily - Zetia 10 mg by mouth daily - nifedipine 20 mg by mouth daily - omeprazole 40 mg by mouth daily - Spiriva Handi-Haler one inhalation daily - clindamycin as directed - Senna one tablet by mouth twice a day - metoprolol succinate 100 mg by mouth twice a day - alprazolam 0.25 mg by mouth twice a day as needed for anxiety - albuterol nebulizer 2.5 mg two puffs every 2 hours as needed for shortness of breath and wheezing - hydrocodone 5/325 mg one tablet every 4 hours as needed for moderate pain and two tablets every 4 hours as needed for severe pain - morphine sulfate 2 mg every 2 hours IV as needed for severe pain - Dulcolax 5 mg daily as needed for constipation - ondansetron 4 mg IV every 6 hours as needed for nausea or vomiting - morphine sulfate 2 mg every 15 minutes as needed IV for chest pain LABORATORY DATA: Complete blood count (CBC) done today revealed a WBC of 10.7, hemoglobin of 12.1 , hematocrit 39.4, and platelets 130,000. On admission the CBC revealed a WBC of 11.1, hemoglobin 12.7, hematocrit 41.0, and platelets 166,000. Basic metabolic panel (BMP) done today revealed a sodium of 139, potassium 4.8, chloride 107, CO2 of 24, BUN 22, creatinine 1.68, GFR 33.0, fasting glucose 94, calcium 8.5. On admission, the BMP revealed a sodium of 144, potassium 4.2, chloride 114, and CO2 of 19, BUN 18, creatinine 1.12, GFR 50.5, fasting glucose 86, and calcium 7.7. Liver enzymes revealed a total bilirubin of 0.5, direct bilirubin 0.2, AST 20, ALT 17, alkaline phosphatase 88, total protein 5.4, albumin 2.7. TSH is 1.97. Serum troponin on admission was 0.02. ABG on admission revealed a pH of 7.39, PCO2 of 28.8, PO2 of 64.9, and oxygen saturation was 91.8% with a bicarbonate of 17.4. PT on admission was 16.0 with an INR of 1.26 and a PTT of 37.8. Chest x-ray on admission revealed no manifestation of heart failure, but mild fibroatelectatic changes bilaterally. Hip x-ray on admission revealed comminuted intratrochanteric fracture in the proximal left femur. Electrocardiogram done on admission revealed sinus bradycardia at 58 beats per minute, right axis deviation that may be related to prior infarct, probably left ventricular hypertrophy and nonspecific ST-T abnormalities noted in the precordial leads. No prior for comparison. Head CT on admission revealed old right basal ganglia and left lacunar infarcts, small vessel ischemic disease and minimal volume loss. IMPRESSION: 76-year-old female with extensive coronary artery disease, peripheral artery disease and valvular heart disease that seems to be stable, was visiting the area on their wedding anniversary when she tripped and fell in the hotel and was found to have a fracture of the proximal left femur. The immediate plan is to proceed with surgery. She has not been having any chest pain and there is no recent acute coronary syndrome or myocardial infarction. She had a nuclear stress test done in 2016 and it was negative for ischemia or infarction. Left ventricular ejection fraction was normal. Echocardiogram done today revealed a normal left ventricular ejection fraction but with small left ventricle and moderate left ventricular hypertrophy. The aortic valve is working good without any significant stenosis or regurgitation. There is moderately severe pulmonary hypertension with moderate tricuspid regurgitation and dilated left heart chambers. She was recently seen by her primary quality assurance assistant in [place] and the plan was to proceed with a routine nuclear stress test for followup on the coronary artery disease in view of her history, but the patient does not think that her symptoms are that much different. I have reviewed her medications and I will continue the same. Her bkypgdmbpkr-gabqkogdgx-ulylpe (JOSEPH) inhibitor/Lisinopril was discontinued and I agreed. She does have a history of renal failure after her CABG. She was on IV fluids on admission and I will discuss with her hospitalist, it should be restarted. I have noticed that her creatinine has increased. I have discussed with the patient, as well as her and her daughter over the phone and the patient is at moderate risk for the surgery for an event, particularly atrial fibrillation after the surgery, but she may proceed as scheduled. We will stay away from the JOSEPH inhibitor for now, but we will continue with the beta krunal. If the blood pressure goes lower, we will stop the nifedipine. She is only taking it for her renal symptoms. She would benefit from cardiac monitoring after her surgery until she is more stable. She also will need deep vein thrombosis (DVT) prophylaxis and early ambulation and the patient is well aware of that. 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 The case will be discussed with Dr. Decker. It was a pleasure to participate in the care of Mrs. Julee Hoyos for underlying cardiac condition. I will continue to monitor her along with you while in the hospital. Once again, she appears to be stable. I will recheck her serum troponin today and then further recommendations will be given if needed. I also discussed with the patient and the about transferring her to [place] for surgery, but she prefers to have it done here. I believe that she is stable enough for the surgery in our facility. AIDAN
[2016-10-28 22:00] VITALS: BP 133/65
[2016-10-29] VITALS (8 sets, daily range): BP systolic 91–120; BP diastolic 54–67
[2016-10-29] MEDS: ONDANSETRON 4MG/2ML VIAL (J2405) IV PRN (00:26)
[2016-10-29] MEDS: MORPHINE 2 MG/ML 1ML SYRINGE IV PRN ×3 (00:28→11:26)
[2016-10-29] MEDS: D5W/0.9% SODIUM CHLORIDE 1,000 ML IV SCH (02:14)
[2016-10-29] MEDS: NORCO, ANEXSIA 5/325MG TABLET (HYDROcodone/ACETAMINOPHEN) PO PRN (06:15)
[2016-10-29 06:20] LABS: BASO % 0.1 % (0.0-1.0); EOS % 0.3 % (0.0-3.0); LARGE UNSTAINED CELL # 0.1 K/mm3 (0.0-0.4); LARGE UNSTAINED CELL % 0.9 % (0.0-4.0); LYMPH % 6.9 % (24.0-44.0); MEAN CORPUSCULAR HEMOGLOBIN 27.3 pg (27.0-33.0); MEAN CORPUSCULAR HGB CONC 31.4 g/dl (32.0-36.5); MONO # 0.8 K/mm3 (0.0-0.8); MONO % 6.6 % (0.0-5.0); NEUTROPHILS # 10.4 K/mm3 (1.8-7.7); NEUTROPHILS % 85.2 % (36.0-66.0); PLATELET COUNT, AUTOMATED 121 k/mm3 (150-450); RED CELL DISTRIBUTION WIDTH 17.1 % (11.5-14.5); WHITE BLOOD COUNT 12.3 K/mm3 (4.0-10.0)
[2016-10-29 06:49] LABS: CALCIUM LEVEL 7.6 MG/DL (8.8-10.2); CREATININE FOR GFR 1.33 MG/DL (0.55-1.02); GLOMERULAR FILTRATION RATE 41.4 (>39); POTASSIUM SERUM 4.4 MEQ/L (3.5-5.1)
[2016-10-29] MEDS: TIOTROPIUM INHALER/CAPSULE (SPIRIVA) INH SCH (07:42)
--- NOTE | 2016-10-29 08:07 | IPNPDOC ---
Date Seen The patient was seen on 10/29/16. Progress Note S: Patient is a 76 y/o female community ambulator with no assistive devices with significant history of cardiovascular disease with a L intertrochanteric femur fracture. Yesterday, patient was pending clearance for surgery and risk stratification by cardiology. Lpn Medical Assistant evaluated the patient and deemed moderate risk for perioperative complication but with EF on ultrasound that was sufficient and did not require further cardiac workup prior to surgery. I discussed with the patient the risks, benefits, indication, and alternatives of operative fixation to include the morbidity associated with prolonged bedbound immobilization. I also discussed her case with the hospitalist service and anesthesia team. We will proceed today with L hip cephalomedullary nail fixation under general anesthesia. Plavix will be restarted post operatively. Patient expressed understanding and all questions were answered. Informed consent was obtained. VS, I&O, 24H, Fishbone Vital Signs/I&O Vital Signs Date Time Temp Pulse Resp B/P (MAP) Pulse Ox O2 Delivery O2 Flow Rate FiO2 10/29/16 06:54 18 10/29/16 06:00 98.3 62 99/58 (72) 90 Nasal Cannula 2.0 I&O- Last 24 Hours up to 6 AM 10/29/16 06:00 Intake Total 420 ml Output Total 250 ml Balance 170 ml Laboratory Data 24H LABS Laboratory Tests 2 10/28/16 13:55: Urine Appearance HAZY, Urine Color YELLOW, Urine pH 5.0, Urine Specific [place] 1.018, Urine Protein NEGATIVE, Urine Glucose (UA) NEGATIVE, Urine Ketones NEGATIVE, Urine Urobilinogen 0.2, Urine Bilirubin NEGATIVE, Urine Leukocyte Esterase 2+H, Urine Blood 2+H, Urine Nitrite NEGATIVE, Urine WBC (Auto) 16H, Urine RBC (Auto) 53H, Urine Hyaline Casts (Auto) 8, Urine Bacteria (Auto) 2+H, Urine Squamous Epithelial Cells 1, Urine Mucus (Auto) SMALL, Urine Sperm (Auto) , Urine Random Creatinine 131.0, Urine Random Sodium 58 10/28/16 14:57: Total Creatine Kinase 41, Myoglobin 98H, Troponin I 0.03# 10/29/16 06:01: White Blood Count 12.3H, Red Blood Count 4.31, Hemoglobin 11.8L, Hematocrit 37.5 , Mean Corpuscular Volume 87.0, Mean Corpuscular Hemoglobin 27.3, Mean Corpuscular Hemoglobin Concent 31.4L, Red Cell Distribution Width 17.1H, Platelet Count 121L, Neutrophils (%) (Auto) 85.2H, Lymphocytes (%) (Auto) 6.9L, Monocytes (%) (Auto) 6.6H, Eosinophils (%) (Auto) 0.3, Basophils (%) (Auto) 0.1 , Neutrophils # (Auto) 10.4H, Lymphocytes # (Auto) 1.0L, Monocytes # (Auto) 0.8 , Eosinophils # (Auto) 0.0, Basophils # (Auto) 0.0, Large Unclassified Cells % 0.9, Large Unclassified Cells # 0.1, Anion Gap 8, Glomerular Filtration Rate 41.4, Blood Urea Nitrogen 22H, Creatinine 1.33H, Sodium Level 137, Potassium Level 4.4, Chloride Level 108H, Carbon Dioxide Level 21, Calcium Level 7.6L CBC/BMP Laboratory Tests 10/29/16 06:01 Red Blood Count 4.31, Mean Corpuscular Volume 87.0, Mean Corpuscular Hemoglobin 27.3, Mean Corpuscular Hemoglobin Concent 31.4 L, Red Cell Distribution Width 17.1 H, Neutrophils (%) (Auto) 85.2 H, Lymphocytes (%) (Auto) 6.9 L, Monocytes ( %) (Auto) 6.6 H, Eosinophils (%) (Auto) 0.3, Basophils (%) (Auto) 0.1, Neutrophils # (Auto) 10.4 H, Lymphocytes # (Auto) 1.0 L, Monocytes # (Auto) 0.8 , Eosinophils # (Auto) 0.0, Basophils # (Auto) 0.0, Calcium Level 7.6 L ALFREDO VILLALOBOS MD Oct 29, 2016 08:07
[2016-10-29] MEDS: METOPROLOL SUCC (TopROL XL) 100MG *XL* TAB PO SCH ×2 (09:00→21:49)
[2016-10-29] MEDS: SENOKOT S TAB PO SCH ×2 (11:24→21:50)
[2016-10-29] MEDS: OMEPRAZOLE 20 MG CAP PO SCH (11:24)
[2016-10-29] MEDS: EZETIMIBE 10 MG TAB (ZETIA) PO SCH (11:25)
[2016-10-29] MEDS ORDERED: CLINDAMYCIN 600 MG/50 ML PREMIX BAG As Ordered ONE (12:37)
--- NOTE | 2016-10-29 13:05 | IPN ---
DATE: 10/29/2016 SUBJECTIVE: The patient tells me that she has pain in her hip, but otherwise there are no specific complaints. She denies chest pain, shortness of breath, fever, chills, nausea or vomiting, no diarrhea. OBJECTIVE: VITAL SIGNS: Temperature 98.3, pulse 62, respiratory rate 18, blood pressure (BP) 99/58, oxygen saturation is 90% on 2 liters nasal cannula. GENERAL: She is fair elderly female lying flat in bed. She does not appear to be in any acute distress. She is accompanied by her , who is sitting next to her bedside. HEENT: Cranial nerves II/XII are grossly intact. She has mildly dry mucous membranes. No elevation of central venous pressure (CVP). CARDIOVASCULAR EXAM: S1, S2 regular with a prominent S2. RESPIRATORY EXAM: Fairly clear. No audible wheeze. ABDOMINAL EXAM: Benign. EXTREMITIES: No clubbing, cyanosis or edema. LABORATORY STUDIES: White blood count (WBC) 12.3, hemoglobin 11.8, platelet count 121. Chemistry panel: Sodium 137, potassium 4.4, chloride 108, bicarbonate 21, BUN 22, creatine 1.3 down from 1.6. Two sets of cardiac enzymes are negative. There is mildly elevated myoglobin at 98. Normal CPK. Lipase within normal limits. Thyroid simulating hormone (TSH) within normal limits. INR which is within normal limits. Urinalysis as abnormal for red blood cells (RBCs) and white blood cells (WBCs), leukocyte esterase and 2+ bacteria. Urine culture has been ordered. IMAGING: There are no new imaging. ASSESSMENT AND PLAN: This is a 36-year-old female with a fairly significant history of coronary artery disease, status post mechanical fall with a hip fracture. PROBLEM: 1. Hip fracture in terms of preoperative risk stratification I did see the patient yesterday morning and she informed me she was due to have a stress test completed this week. She also told me that she been having shortness of breath with exertion and her ichthyology teacher was aware of this. Based on that and her history of the patient to be high risk and delayed any surgery until the patient could be evaluated by our ichthyology teacher Dr. dexter. I did discuss options with Dr. dexter and the patient and her such as transfer to [place] for stress testing and any needed intervention prior to surgery. The patient and her declined offers for transfer and further testing interventions and requested the cervix to be completed here knowing that she would be high risk. I 'll did have Dr. dexter seen and evaluated the patient and he felt she was moderate risk for sudden contacting her primary ichthyology teacher completing an echocardiogram reviewed the results himself as well as seeing the patient reviewing her history personally. Dr. Hammond feels she is at moderate risk and okay to proceed with the procedure here without any further testing. She is on a beta krunal, we have held nifedipine as her blood pressure is soft and lisinopril as per Dr. Hammond's recommendation. She has been given some gentle IV fluids. She is nothing by mouth and prepped for procedure later today. She dose have coronary artery disease. Her Aspirin and Plavix Are currently on hold. She is on a beta krunal. She is not on a statin. She is on Zetia. Will defer her to outpatient ichthyology teacher. 2. Anxiety. The patient is to continue on Xanax. 3. Chronic obstructive pulmonary disease (COPD). The patient is on Spiriva and nebulizer treatments as needed. 4. Gastroesophageal reflux disease. The patient is omeprazole. She is currently receiving oxygen, became 100 postoperatively, and wean as tolerated. 5. Peripheral vascular disease, status post fem-fem bypass. Stable at this point in time by notes. Now the patient is currently on oxygen. She now only uses nifedipine, we are holding today prior to operate in the operating room. We will resume it as soon as possible. 6. Deep vein thrombosis (DVT) prophylaxis. Will holding Lovenox today. DISPOSITION: The patient's clinic status remains guarded. We will watch her closely in perioperative period. AIDAN
[2016-10-29] MEDS ORDERED: fentaNYL 250 MCG/5 ML INJECTION (J3010) As Ordered ONE (13:08)
[2016-10-29] MEDS ORDERED: PROPOFOL 200 MG/20 ML VIAL As Ordered ONE (13:08)
[2016-10-29] MEDS ORDERED: ROCURONIUM BROMIDE 50 MG/5 ML VIAL/SYRINGE As Ordered ONE (13:08)
[2016-10-29] MEDS ORDERED: LIDOCAINE 2% INJ 100 MG/5 ML SDV (FOR ANES.) As Ordered ONE (13:08)
[2016-10-29] MEDS ORDERED: MIDAZOLAM INJ 2 MG/2 ML VIAL (J2250) As Ordered ONE (13:08)
[2016-10-29] MEDS ORDERED: ePHEDrine SULFATE 25 MG/5 ML(5MG/ML) SYRINGE As Ordered ONE (13:26)
[2016-10-29] MEDS ORDERED: ONDANSETRON 4MG/2ML VIAL (J2405) As Ordered ONE (13:41)
[2016-10-29] MEDS ORDERED: SUGAMMADEX SODIUM 500 MG/5 ML VIAL (BRIDION) As Ordered ONE (13:50)
[2016-10-29] MEDS ORDERED: fentaNYL 100 MCG/2 ML INJECTION (J3010) As Ordered ONE (14:36)
[2016-10-29] MEDS: fentaNYL 100 MCG/2 ML INJECTION (J3010) IV PRN ×3 (14:37→15:06)
[2016-10-29] MEDS ORDERED: ACETAMINOPHEN TAB 650MG DOSE (2X325MG) PO PRN (14:45)
[2016-10-29] MEDS ORDERED: ONDANSETRON 4MG/2ML VIAL (J2405) IV PRN (14:45)
[2016-10-29] MEDS ORDERED: LR 1,000 ML IV SCH (14:45)
--- NOTE | 2016-10-29 15:12 | REP ---
Left femur four views post op study: There is a gamma nail stabilizing an intertrochanteric fracture in satisfactory position alignment on all views. Signed by Valdo Foster MD 10/29/2016 03:04 P
[2016-10-29] MEDS ORDERED: NORCO, ANEXSIA 5/325MG TABLET (HYDROcodone/ACETAMINOPHEN) As Ordered ONE (15:32)
[2016-10-29] MEDS: traMADol 50 MG TAB PO PRN (21:50)
[2016-10-30 02:00] VITALS: BP 120/60
[2016-10-30] MEDS: traMADol 50 MG TAB PO PRN (04:51)
[2016-10-30] MEDS ORDERED: NS 1,000 ML IV SCH (05:00)
[2016-10-30] MEDS ORDERED: SODIUM CHLORIDE 0.9% 1000 ML IV ONE (05:00)
[2016-10-30 06:00] VITALS: BP 92/64
[2016-10-30] MEDS: TIOTROPIUM INHALER/CAPSULE (SPIRIVA) INH SCH (07:28)
--- NOTE | 2016-10-30 08:30 | REP ---
Left hip intraoperative fluoroscopic views: A series of nine intraoperative fluoroscopic views are performed during gamma nail fixation of an intertrochanteric fracture. The fracture and hardware are in satisfactory positions alignment. There is an interlocking screw in the distal gamma nail. Fluoroscopic exposure time is 1 minute 20 seconds. Fluoroscopic images are performed with last image hold technology. These images require no additional radiation. Signed by Valdo Foster MD 10/29/2016 02:32 P
--- NOTE | 2016-10-30 08:39 | RO ---
DATE OF PROCEDURE: 10/29/2016 PREPROCEDURE DIAGNOSIS: Left intertrochanteric femur fracture. POSTPROCEDURE DIAGNOSIS: Left intertrochanteric femur fracture. PROCEDURE: Left hip cephalomedullary nail fixation. SURGEON: Dr. Christiano Vergara. MANAGER HOUSEKEEPING: VINAYAK Vu ANESTHESIA: General endotracheal anesthesia. IMPLANT USED: Synthes TFN-Advanced 11 mm x 360 mm nail with 100 mm helical blade and 38 mm x 5 mm distal interlocking screw. ESTIMATED BLOOD LOSS: 100 mL. ANTIBIOTICS: 600 mg clindamycin IV given within 1 hour of incision. MATERIAL SENT TO LAB: None. COMPLICATIONS: None. INDICATION FOR PROCEDURE: Julee Hoyos is a 76-year-old female who is visiting the area on vacation who is a community ambulatory with no assistive devices sustained a mechanical fall from standing height resulting in a left intertrochanteric femur fracture. The patient has a significant past medical history of coronary artery disease, peripheral vascular disease, status post cardiac stenting and femoral/femoral bypass procedures and is on Plavix with decreased ejection fraction. The patient was medically optimized by the hospitalist service. She was evaluated by the [facility] field logistics coordinator and anesthesia service and was appropriately risk stratified and cleared for surgery with general anesthesia. There was concern for excessive delay with surgical fixation using spinal anesthesia given the time necessary to wait for Plavix to washout. I discussed with the patient in detail the risks, benefits, indications, and alternatives of operative and nonoperative treatment including the morbidity associated with delayed treatment versus the risk of perioperative complications, including . The patient elected to proceed with left hip cephalomedullary nail fixation. I also counseled the patient that I will be her operating surgeon but since she lives in [place], she will likely, ultimately require followup with orthopedic surgeon. However, she may followup with us with [facility] as needed if necessary. The patient expressed understanding with this arrangement and provided informed consent. INTRAOPERATIVE FINDINGS: The patient had a stable intratrochanteric femur fracture after fixation with no intraoperative complications. DESCRIPTION OF PROCEDURE: The patient was positively identified in the preop holding area where the surgical site was marked. She was brought to the operating room where she was placed under general endotracheal anesthesia. She was positioned supine on the fracture table with all bony prominences appropriately padded. Sequential compression device (SCD) was placed in the nonoperative extremity for deep venous thrombosis (DVT) prophylaxis. I obtained repairer evaporator fluoroscopic images after obtaining a closed reduction using traction, slight adduction, and internal rotation. Anatomic reduction was obtained through closed means. We then prepped and draped the patient in the usual sterile fashion. A final time-out was performed. I made a 3 cm incision about three fingerbreadths proximal and posterior to the tip of the greater trochanter. I dissected the skin and subcutaneous tissue. I introduced a 3.2 mm threaded guidepin in the tip of the greater trochanter and centered on lateral fluoroscopic imaging. The guidepin was then advanced to just distal to the level of the lesser trochanter. The 16 mm opening reamer was then placed to the level of the lesser trochanter. A ball-tip guidewire was the introduced into the femur to the level of the superior pole of the patella, measured and determined that a 360 mm length nail would be appropriate. I then passed a 12.5 mm reamer at one time down the shaft of the femur to insure smooth passage of the nail. The nail was then inserted to the appropriate depth. The guide for the helical blade was then inserted through a 2 cm lateral-based incision just distal to the greater trochanter. The guide was introduced and made flush to the lateral cortex of the femur. 3.2 mm threaded guidepin for the helical blade was advanced to the level of the subchondral bone of the femoral head. It was then centered on AP and lateral fluoroscopy within the femoral neck and then measured the helical blade to a depth of 100 mm. The path of the helical blade was reamed in a standard fashion. 100 mm helical blade was then advanced and confirmed on AP and lateral fluoroscopic imaging. There was no intra-articular penetration of the helical blade. At this by point, the guidewire was the moved distal and placed a single distal interlocking screw for rotational control using standard perfect sioux technique through a small 1 cm laterally based incision of the distal femur. After all hardware was in place, I took final fluoroscopic images, AP and lateral of the knee and AP and lateral of the hip to confirm adequate placement of all hardware and anatomic reduction of the fracture. At this point, the wounds were thoroughly irrigated with normal saline and closed in layers. The two proximal femur wounds were closed with #2-0 Vicryl and georges and the distal interlocking screw hole was closed primarily with georges. Sterile dressings were applied. This ended the procedure. I was present and scrubbed in for all critical portions of the case. POSTOPERATIVE PLAN: The patient will be weightbearing as tolerated of the left lower extremity. She will undergo physical therapy for ambulation with a walker. She will be discharged when criteria is met. AIDAN
[2016-10-30] MEDS: METOPROLOL SUCC (TopROL XL) 100MG *XL* TAB PO SCH (09:00)
[2016-10-30] MEDS: EZETIMIBE 10 MG TAB (ZETIA) PO SCH (09:00)
[2016-10-30] MEDS ORDERED: NIFEdipine 10 MG CAP PO SCH (09:00)
[2016-10-30] MEDS: OMEPRAZOLE 20 MG CAP PO SCH (09:00)
[2016-10-30] MEDS ORDERED: MIRALAX *UNIT DOSE* 17GM PACKET PO SCH (09:00)
[2016-10-30] MEDS ORDERED: CLOPIDOGREL 75 MG TAB PO SCH (09:00)
[2016-10-30] MEDS: SENOKOT S TAB PO SCH (09:00)
[2016-10-30] MEDS ORDERED: MOM 30ML SUSPENSION UDC PO SCH (09:00)
[2016-10-30 09:23] LABS: CALCIUM LEVEL 8.3 MG/DL (8.8-10.2); CREATININE FOR GFR 1.58 MG/DL (0.55-1.02); GLOMERULAR FILTRATION RATE 33.9 (>39)
[2016-10-30 09:24] LABS: POTASSIUM SERUM 5.2 MEQ/L (3.5-5.1)
[2016-10-30 09:47] LABS: BASO % 0.2 % (0.0-1.0); EOS % 0.1 % (0.0-3.0); LARGE UNSTAINED CELL # 0.1 K/mm3 (0.0-0.4); LYMPH # 1.3 K/mm3 (1.5-4.5); LYMPH % 9.9 % (24.0-44.0); MEAN CORPUSCULAR HEMOGLOBIN 26.6 pg (27.0-33.0); MEAN CORPUSCULAR HGB CONC 30.2 g/dl (32.0-36.5); MEAN CORPUSCULAR VOLUME 88.2 fl (80.0-96.0); MONO # 0.9 K/mm3 (0.0-0.8); MONO % 7.1 % (0.0-5.0); NEUTROPHILS # 9.9 K/mm3 (1.8-7.7); NEUTROPHILS % 81.7 % (36.0-66.0); PLATELET COUNT, AUTOMATED 132 k/mm3 (150-450); RED CELL DISTRIBUTION WIDTH 17.2 % (11.5-14.5); WHITE BLOOD COUNT 12.1 K/mm3 (4.0-10.0)
--- NOTE | 2016-10-30 09:47 | REP ---
Right ankle four views: On one oblique view there is a small calcification adjacent to the head of the talus, nonspecific, accessory ossicle versus an avulsion. There is no adjacent soft tissue edema. Correlate with clinical point tenderness is recommended. There is no other evidence of fracture. The mortise is symmetric. Mineralization is normal. The joint spaces are unremarkable. Impression: Accessory ossicle versus small avulsion adjacent to the head of the talus. Otherwise, negative right ankle are Signed by Valdo Foster MD 10/30/2016 09:39 A
[2016-10-30 10:00] VITALS: BP 117/62
[2016-10-30] MEDS ORDERED: NOREPINEPHRINE BITARTRATE 8 MG in D5W 500 ML IV SCH ×2 (13:00)
[2016-10-30] MEDS ORDERED: EPINEPHrine 1MG/10ML SYRINGE 1.5IN ONE (13:10)
[2016-10-30] MEDS ORDERED: SODIUM BICARBONATE 8.4% INJ 50 ML SYRINGE ONE (13:10)
[2016-10-30] MEDS ORDERED: NALOXONE INJ 0.4 MG/1 ML VIAL (J2310) ONE (13:10)
[2016-10-30] MEDS ORDERED: ATROPINE SULF 1MG/10ML SYRINGE (J0461) ONE (13:10)
--- NOTE | 2016-10-30 14:48 | RO ---
DATE OF PROCEDURE: 10/30/2016 PREOPERATIVE DIAGNOSIS: POSTOPERATIVE DIAGNOSIS: PROCEDURE: Endotracheal intubation. PERFORMING PHYSICIAN: Rhianna Cervantes MD ULTRASOUND TECHNOLOGIST SONOGRAPHER: ANESTHESIA: DESCRIPTION OF PROCEDURE: The patient was properly positioned and in between cycles of cardiopulmonary resuscitation (CPR), the patient was intubated successfully with a 7.5 endotracheal tube and with the help of a curved blade. Intubation was uneventful. Air entry was checked bilaterally, and were equal and symmetric. Endotracheal tube was fixed at 23 cm at the lip level. Position was checked by end-tidal CO2 with appropriate color change. The patient was continued to be Ambu bagged through the endotracheal tube and CPR was continued.
--- NOTE | 2016-10-30 15:30 | IPNPDOC ---
Text Note NOTE NOTE MADE IN ERROR VS,Rhettbone, I+O VS, Rhettbone, I+O Laboratory Tests 10/30/16 08:52 Red Blood Count 4.48, Mean Corpuscular Volume 88.2, Mean Corpuscular Hemoglobin 26.6 L, Mean Corpuscular Hemoglobin Concent 30.2 L, Red Cell Distribution Width 17.2 H, Neutrophils (%) (Auto) 81.7 H, Lymphocytes (%) (Auto) 9.9 L, Monocytes ( %) (Auto) 7.1 H, Eosinophils (%) (Auto) 0.1, Basophils (%) (Auto) 0.2, Neutrophils # (Auto) 9.9 H, Lymphocytes # (Auto) 1.3 L, Monocytes # (Auto) 0.9 H , Eosinophils # (Auto) 0.0, Basophils # (Auto) 0.0, Calcium Level 8.3 L Vital Signs Date Time Temp Pulse Resp B/P (MAP) Pulse Ox O2 Delivery O2 Flow Rate FiO2 10/30/16 10:20 Nasal Cannula 2.0 10/30/16 10:00 98.3 64 20 117/62 (80) 94 I&O- Last 24 Hours up to 6 AM 10/30/16 06:00 Intake Total 1162 ml Output Total 480 ml Balance 682 ml Physical Examination Physical Examination Vital Signs/I&O Vital Signs Date Time Temp Pulse Resp B/P (MAP) Pulse Ox O2 Delivery O2 Flow Rate FiO2 10/30/16 10:20 Nasal Cannula 2.0 10/30/16 10:00 98.3 64 20 117/62 (80) 94 I&O- Last 24 Hours up to 6 AM 10/30/16 05:59 Intake Total 1142 ml Output Total 405 ml Balance 737 ml General Exam: Positive: alert, talkative, cooperative, moderate distress, other (her eyes were closed when I had examined her and patient was c/o of 20/ 10 pain) ENT EXAM: Positive: normocephalic, atraumatic Neck Exam: Positive: Supple Chest Exam: Positive: Clear to auscultation (in anterior lung prado: limited exam as patient was frail, elderly, and postoperative. I did not feel I could move patient and she seemed to be in a moderate amount of pain. Wheezing was not appreciable. ), Negative: Rales, Rhonchi Heart Exam: Positive: Regular rate and rhythm, Negative: Murmurs Abdominal Exam: Positive: Normal bowel sounds, Soft, Other (+tenderness to palpation of lower mid abdomen), Negative: Nondistended, Hepatospenomegaly Extremity Exam: Positive: Other (dorsalis pedis pulses minimally palpable. ), Negative: Clubbing, Cyanosis, Edema Skin Exam: Positive: Other (lower extremities and feet cool to touch bilterally ) Neuro Exam: Positive: Normal Speech, Other (No focal neurologic deficits appreciated bilaterally.) Psych Exam: Positive: Anxiety (in pain postoperatively) Laboratory Data Labs 24H Laboratory Tests 2 10/30/16 08:52: White Blood Count 12.1H, Red Blood Count 4.48, Hemoglobin 11.9L, Hematocrit 39.5 , Mean Corpuscular Volume 88.2, Mean Corpuscular Hemoglobin 26.6L, Mean Corpuscular Hemoglobin Concent 30.2L, Red Cell Distribution Width 17.2H, Platelet Count 132L, Neutrophils (%) (Auto) 81.7H, Lymphocytes (%) (Auto) 9.9L, Monocytes (%) (Auto) 7.1H, Eosinophils (%) (Auto) 0.1, Basophils (%) (Auto) 0.2 , Neutrophils # (Auto) 9.9H, Lymphocytes # (Auto) 1.3L, Monocytes # (Auto) 0.9H , Eosinophils # (Auto) 0.0, Basophils # (Auto) 0.0, Large Unclassified Cells % 1.0, Large Unclassified Cells # 0.1, Anion Gap 12, Glomerular Filtration Rate 33.9L, Blood Urea Nitrogen 28H, Creatinine 1.58H, Sodium Level 136, Potassium Level 5.2H, Chloride Level 107, Carbon Dioxide Level 17L, Calcium Level 8.3L CBC/BMP Laboratory Tests 10/30/16 08:52 Red Blood Count 4.48, Mean Corpuscular Volume 88.2, Mean Corpuscular Hemoglobin 26.6 L, Mean Corpuscular Hemoglobin Concent 30.2 L, Red Cell Distribution Width 17.2 H, Neutrophils (%) (Auto) 81.7 H, Lymphocytes (%) (Auto) 9.9 L, Monocytes ( %) (Auto) 7.1 H, Eosinophils (%) (Auto) 0.1, Basophils (%) (Auto) 0.2, Neutrophils # (Auto) 9.9 H, Lymphocytes # (Auto) 1.3 L, Monocytes # (Auto) 0.9 H , Eosinophils # (Auto) 0.0, Basophils # (Auto) 0.0, Calcium Level 8.3 L ANGIE HERMAN OGME-1 Oct 30, 2016 14:03 NAMRATA MCKEON MD Nov 13, 2016 06:24
--- NOTE | 2016-11-14 21:20 | DSES ---
DATE OF ADMISSION: 10/27/2016 DATE OF DISCHARGE/: 10/30/2016 CAUSE OF : Atherosclerotic coronary artery disease. SECONDARY CAUSE: Hip fracture. HOSPITAL COURSE: The patient was a 76-year-old female who was admitted after a mechanical fall on 10/27. She was visiting from [place], [place]. She was found to have a hip fracture, was evaluated by Dr. Cervantes at the time of admission. The patient had been on Plavix and Dr. Cervantes felt the patient was high risk and did not clear the patient for surgery. She had ordered and echocardiogram and admitted the patient to the medical/surgical floor. Dr. Fransico Mcdowell of orthopedic surgery evaluated the patient and held off on any surgery until the patient could be risk stratified and better optimized. The following morning, I assumed care of the patient and was called by Dr. Vergara, who was not concerned about Plavix in terms of bleeding. He had spoken with Dr. Drew Hanna of anesthesia, who also not was concerned about bleeding with Plavix and asked that if the patient was otherwise optimized. It was at that point that I visited the patient and met and examined her. She informed that she had shortness of breath with minimal exertion, as well as her tie bucker was aware of this and she was scheduled to have a stress test completed this week. In light of this, I felt the patient was quite high risk, and I discussed potentially transferring her to [place] to have inpatient stress test and have any potential intervention needed prior to orthopedic surgery. The patient and her declined these offers. I did inform her that she would be very high risk and that I could not say that she was optimized without further testing. I did call Dr. Hammond and discuss my preliminary plan of care with potential transfer with him, but the patient declined transfer. He agreed to see the patient in consultation that day, and he was able to complete and review an echocardiogram as well speak with the patient's tie bucker, and get her records from there. He then evaluated the patient himself and felt that she was a moderate risk and needed no further testing prior to procedure. Subsequently, the patient went to the operating room on 10/29/2016. Plan was made for the patient to proceed with surgery. On 10/30/2016, I did visit her early in the morning and she was doing quite well and offered no complaints to me at that time. Shortly thereafter, she began to develop abdominal pain which was reported by nursing staff, LELE gonzalez was called and I came very quickly as I was already on the floor at that time. I did respond immediately. The patient was found to be in pulseless electrical activity. High quality advanced cardiovascular life support (ACLS) was initiated and completed for 20 minutes. She for much of the duration was in pulseless electrical activity (PEA). She had received several pushes of bicarbonate as well as atropine. We were able reestablish perfusing heart rhythm. Dr. Cervantes was able to intubate the patient bedside. The patient was transferred down to the medical intensive care unit. During resuscitative efforts, was bedside, and made aware of the change of status as was her son by phone. After resumption of circulation. I did sit and speak with the , and answer all his questions to his satisfaction. Explained the fragile nature of her state. He informed me that he was aware that this was a possibility and that we had told them several times that she was high risk. She was moved down to the medical intensive care unit where once again she went into a PEA rhythm. The was bedside at this time and stated he did not wish any further resuscitative efforts to be continued and that she previously expressed to him that she did not want to have continued heroic measures taken. At this point, resuscitative efforts were stopped. Given that this was a postoperative case, the case was discussed with the medical scribe, Dr. Grande, who did not feel an autopsy was necessary as it was related to atherosclerotic coronary artery disease.. AIDAN
== END 2016-10-30 13:11 | disposition expired | DRG 481 ==
LOC: M ED 10:01 → EDBD 10:01 → M ED INP 13:38 → M MS5PR 16:05 → M ICU 10-30 12:49
PROVIDERS: ADMIT Internal Medicine Nephrology; ATTEND Internal Medicine
PROC: 0QS706Z Reposition Left Upper Femur with Intramedullary Internal Fixation Device, Open Approach (ICD-10-PCS; principal; 2016-10-29 12:00)
PROC: 5A1935Z Respiratory Ventilation, Less than 24 Consecutive Hours (ICD-10-PCS; 2016-10-30)
PROC: 0BH17EZ Insertion of Endotracheal Airway into Trachea, Via Natural or Artificial Opening (ICD-10-PCS; 2016-10-30)
DX: S72.142A Displaced intertrochanteric fracture of left femur, initial encounter for closed fracture (principal); I97.121 Postprocedural cardiac arrest following other surgery; N17.9 Acute kidney failure, unspecified; I95.9 Hypotension, unspecified; I25.10 Atherosclerotic heart disease of native coronary artery without angina pectoris; I25.2 Old myocardial infarction; K21.9 Gastro-esophageal reflux disease without esophagitis; I73.9 Peripheral vascular disease, unspecified; I10 Essential (primary) hypertension; J44.9 Chronic obstructive pulmonary disease, unspecified; F41.9 Anxiety disorder, unspecified; I73.00 Raynaud's syndrome without gangrene; W01.0XXA Fall on same level from slipping, tripping and stumbling without subsequent striking against object, initial encounter; Y92.59 Other trade areas as the place of occurrence of the external cause; Y93.01 Activity, walking, marching and hiking; Y99.9 Unspecified external cause status; Z95.5 Presence of coronary angioplasty implant and graft; Z95.2 Presence of prosthetic heart valve; Z86.73 Personal history of transient ischemic attack (TIA), and cerebral infarction without residual deficits; Z90.710 Acquired absence of both cervix and uterus; Z90.49 Acquired absence of other specified parts of digestive tract; Z79.82 Long term (current) use of aspirin; Z79.02 Long term (current) use of antithrombotics/antiplatelets; Z79.899 Other long term (current) drug therapy; Z88.0 Allergy status to penicillin; Z91.040 Latex allergy status; Z87.891 Personal history of nicotine dependence